=== PATIENT | male | born 1960 | race Caucasian/White ===

== ENCOUNTER 2021-09-09 15:20 | Inpatient (IN) ==
[2021-09-09] MEDS ORDERED: SODIUM CHLORIDE 0.9% 1000ML 1,000 ML IV STA ×2 (15:40→16:32)
[2021-09-09] MEDS ORDERED: HYDROmorphone INJ 0.5 MG/0.5 ML SYR IV PRN (15:40)
[2021-09-09] MEDS ORDERED: SODIUM CHLORIDE 0.9% 250 ML IV PRN (15:40)
[2021-09-09] MEDS ORDERED: FAMOTIDINE 20MG/5ML IV PUSH IV STA (15:43)
[2021-09-09 15:49] LABS: iSTAT Creatinine 1.2 mg/dl (0.6-1.3); iSTAT Hemoglobin 8.8 g/dl (14.0-18.0); iSTAT Ionized Calcium 1.12 mmol/l (1.12-1.32)
--- NOTE | 2021-09-09 15:52 | Emergency Department Note ---
Impression & Plan Acute GI bleeding, Abdominal pain, lower, Tachycardia ED Provider Note INFORMANT: Patient ED PROVIDER(S): Mikal Correa MD CHIEF COMPLAINT: Abdominal pain PLAN: Disposition: Admitted Condition: Good Outpatient prescription management: none Referral: None MEDICAL DECISION MAKING: Patient presented to emergency room because of abdominal pain and GI bleeding. He has had multiple episodes. He was tachycardic. He had lower pain and was Hemoccult positive on examination. The patient was hydrated. His CBC showed a significant leukocytosis. Chemistry panel was unremarkable. The patient's hemoglobin was moderately low as well. He underwent CT imaging and this showed diverticulitis without abscess. The patient had a dose of IV Zosyn given. As needed Dilaudid was ordered. Additional fluids ordered. Stool studies ordered. Further management in the hospital will be necessary. Consultation was made with the [facility] service. Patient was evaluated in the ER admitted for further management. Triage Nursing notes reviewed and agree them. Vital Signs: reviewed and remarkable for tachycardia Differential diagnosis: Diverticulosis, AVM, coagulopathy, colitis, inflammatory bowel disease, malignancy, Wilma-Erickson tear, esophagitis, peptic ulcer disease, variceal bleed, gastritis, epistaxis, fissure, hemorrhoids, as well as other pathologies. Diagnostics interpreted by me: ECG: none Cardiac Monitoring: Cardiac monitoring ordered by me: The patient was placed on continuous cardiac monitoring and observed. It revealed a sinus tachycardic rhythm at 123 beats per minute without ectopy or evidence of dysrhythmia. Imaging studies: CT scan as above HPI: The patient is a 60 year old male who presents to the Emergency Room with complaints of lower. This started yesterday and is worsening. The patient also notes the following associated symptoms, bloody bowel movements yesterday and today totaling 10. Patient says he had some diarrhea and GI upset last week and then it got better. The patient has been given morphine by EMS for relieving factors. Current pain is rated as 4/10. Patient states pain was a 9 out of 10. He does use daily Aleve. Has history of high blood pressure but is not on any medication. No GI history. Pt denies LOC, headache, fevers, chills, diaphoresis, visual changes, neck pain, chest pain, breathing difficulties, nausea, vomiting, back pain, melena, urinary symptoms, numbness, weakness, lymphadenopathy, rash, or other complaints. ROS: See above HPI for pertinent positives & negatives. A total of 10 systems reviewed and were otherwise negative. 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 Oropharynx unremarkable. EYES: Normal conjunctiva. Sclera non-icteric. NECK: Inspection normal. Non-tender. Supple. No nuchal rigidity. FROM. No masses. RESPIRATORY: Clear to auscultation. No wheezes. No rales. Normal respiratory effort. CARDIAC: Normal rate. Normal rhythm. No murmurs. No rubs. Extremities warm and well perfused. Pulses equal. No JVD. GI: Soft, non-distended. No tenderness to palpation. No rebound or guarding. No masses. RECTAL: No external abnormalities. There was reddish stool in the vault and it was Hemoccult positive. MUSCULOSKELETAL: Atraumatic. Chest examination reveals no tenderness. The back is symmetrical on inspection without obvious abnormality. There is no CVA tenderness to palpation. No joint edema. LOWER EXTREMITIES: Calves are equal size bilaterally and non-tender. No edema. No discoloration. NEURO: Normal sensorium. No sensory or motor deficits noted. SKIN: No rash or jaundice noted. Mikal Correa MD Past Med/Surg History Social History Smoking Status: Current every day smoker Tobacco Type: Cigarettes Feels Safe at Home: Yes Results & Data (ED) Vital Signs Vital Signs - 24 hr 09/09/21 15:27 09/09/21 15:30 09/09/21 16:02 Temperature 36.5 C Temperature Source Oral Pulse Rate 126 H Pulse Rhythm Regular Pulse Strength Normal Respiratory Rate 18 Respiratory Effort / Characteristics Non-Labored Spontaneous Respiratory Depth Normal Respiratory Pattern Regular Blood Pressure 153/85 H 115/73 124/71 Blood Pressure Mean 107 87 88 Blood Pressure Position Lying Pulse Oximetry 97 Oxygen Delivery Method Room Air Sepsis Recent Fever Within 48 Hours No Sepsis New/Unexplained Change in Mental Status N/A Sepsis Action Taken by Nursing No Action Required 09/09/21 17:00 09/09/21 17:02 Temperature Temperature Source Pulse Rate 100 H Pulse Rhythm Pulse Strength Respiratory Rate 12 Respiratory Effort / Characteristics Respiratory Depth Respiratory Pattern Blood Pressure 146/70 H Blood Pressure Mean 95 Blood Pressure Position Pulse Oximetry 96 Oxygen Delivery Method Room Air Sepsis Recent Fever Within 48 Hours Sepsis New/Unexplained Change in Mental Status Sepsis Action Taken by Nursing Laboratory Data Result diagrams: 09/09/21 15:26 09/09/21 15:26 Lab Results 09/09/21 09/09/21 09/09/21 Range/Units 15:26 15:26 15:26 WBC 27.91 H (4.8-10.8) K/uL RBC 3.32 L (4.7-6.1) M/uL Hgb 9.3 L (14.0-18.0) g/dL POC Hgb (14.0-18.0) g/dl Hct 28.6 L (42-52) % POC Hct (42-52) % MCV 86.1 (80-100) fL MCH 28.0 (25-34) pg MCHC 32.5 (32-36) g/dL RDW Std Deviation 47.9 H (36.4-46.3) fL RDW Coeff of Reggie 15.2 H (11.5-14.5) % Plt Count 467 H (130-400) K/uL MPV 9.3 (7.4-10.4) fL Immature Gran % (Auto) 2.5 % Neut % (Auto) 82.4 % Lymph % (Auto) 5.8 % Pierce % (Auto) 8.3 % Eos % (Auto) 0.8 % Baso % (Auto) 0.2 % Neut # (Auto) 23.04 H (1.4-6.5) K/uL Lymph # (Auto) 1.61 (1.2-3.4) K/uL Pierce # (Auto) 2.31 H (0.11-0.59) K/uL Eos # (Auto) 0.21 (0-0.5) K/uL Baso # (Auto) 0.05 (0-0.2) K/uL Immature Gran # (Auto) 0.69 H (0.00-0.02) K/uL Hypochromasia Present PT 10.9 (9.0-12.0) Seconds INR 1.1 (0.9-1.1) POC Sodium (135-144) mmol/L Sodium 134 L (136-145) mmol/L POC Potassium (3.3-5.0) mmol/L Potassium 4.0 (3.5-5.1) mmol/L POC Chloride (101-112) mmol/L Chloride 104 (98-107) mmol/L Carbon Dioxide 24 (21-32) mmol/L POC Total CO2 (24-31) mmol/L Anion Gap 6.0 (3-11) POC Anion Gap (16-25) mmol/L POC BUN (7-18) mg/dl BUN 20 H (7-18) mg/dl Creatinine 1.30 (0.6-1.4) mg/dl POC Creatinine (0.6-1.3) mg/dl Est Cr Clr Drug Dosing 70.2 ml/min Est GFR ( Amer) 67.8 ml/min Est GFR (Non-Af Amer) 58.5 ml/min BUN/Creatinine Ratio 15.1 (10-20) Glucose 118 H (70-99) mg/dl POC Glucose (other) (70-99) mg/dl Lactate (0.4-2.0) mmol/L Calcium 8.4 L (8.5-10.1) mg/dl POC Ioniz Calcium Oskar (1.12-1.32) mmol/l Total Bilirubin 0.4 (0.2-1) mg/dl AST 23 (15-37) U/L ALT 47 (12-78) Alkaline Phosphatase 115 (45-117) U/L Total Protein 6.6 (6.4-8.2) gm/dl Albumin 2.4 L (3.4-5.0) gm/dl Globulin 4.2 H (2.5-4.0) gm/dl Albumin/Globulin Ratio 0.6 L (0.9-2) Lipase 95 (73-393) U/L Blood Type Blood Type Recheck Antibody Screen Crossmatch 09/09/21 09/09/21 09/09/21 Range/Units 15:37 15:44 16:18 WBC (4.8-10.8) K/uL RBC (4.7-6.1) M/uL Hgb (14.0-18.0) g/dL POC Hgb 8.8 L (14.0-18.0) g/dl Hct (42-52) % POC Hct 26 L (42-52) % MCV (80-100) fL MCH (25-34) pg MCHC (32-36) g/dL RDW Std Deviation (36.4-46.3) fL RDW Coeff of Reggie (11.5-14.5) % Plt Count (130-400) K/uL MPV (7.4-10.4) fL Immature Gran % (Auto) % Neut % (Auto) % Lymph % (Auto) % Pierce % (Auto) % Eos % (Auto) % Baso % (Auto) % Neut # (Auto) (1.4-6.5) K/uL Lymph # (Auto) (1.2-3.4) K/uL Pierce # (Auto) (0.11-0.59) K/uL Eos # (Auto) (0-0.5) K/uL Baso # (Auto) (0-0.2) K/uL Immature Gran # (Auto) (0.00-0.02) K/uL Hypochromasia PT (9.0-12.0) Seconds INR (0.9-1.1) POC Sodium 135 (135-144) mmol/L Sodium (136-145) mmol/L POC Potassium 4.0 (3.3-5.0) mmol/L Potassium (3.5-5.1) mmol/L POC Chloride 102 (101-112) mmol/L Chloride (98-107) mmol/L Carbon Dioxide (21-32) mmol/L POC Total CO2 23 L (24-31) mmol/L Anion Gap (3-11) POC Anion Gap 15.0 L (16-25) mmol/L POC BUN 19 H (7-18) mg/dl BUN (7-18) mg/dl Creatinine (0.6-1.4) mg/dl POC Creatinine 1.2 (0.6-1.3) mg/dl Est Cr Clr Drug Dosing ml/min Est GFR ( Amer) ml/min Est GFR (Non-Af Amer) ml/min BUN/Creatinine Ratio (10-20) Glucose (70-99) mg/dl POC Glucose (other) 119 H (70-99) mg/dl Lactate (0.4-2.0) mmol/L Calcium (8.5-10.1) mg/dl POC Ioniz Calcium Oskar 1.12 (1.12-1.32) mmol/l Total Bilirubin (0.2-1) mg/dl AST (15-37) U/L ALT (12-78) Alkaline Phosphatase (45-117) U/L Total Protein (6.4-8.2) gm/dl Albumin (3.4-5.0) gm/dl Globulin (2.5-4.0) gm/dl Albumin/Globulin Ratio (0.9-2) Lipase (73-393) U/L Blood Type O Positive Blood Type Recheck O Positive Antibody Screen NEGATIVE Crossmatch See Detail 09/09/21 Range/Units 16:52 WBC (4.8-10.8) K/uL RBC (4.7-6.1) M/uL Hgb (14.0-18.0) g/dL POC Hgb (14.0-18.0) g/dl Hct (42-52) % POC Hct (42-52) % MCV (80-100) fL MCH (25-34) pg MCHC (32-36) g/dL RDW Std Deviation (36.4-46.3) fL RDW Coeff of Reggie (11.5-14.5) % Plt Count (130-400) K/uL MPV (7.4-10.4) fL Immature Gran % (Auto) % Neut % (Auto) % Lymph % (Auto) % Pierce % (Auto) % Eos % (Auto) % Baso % (Auto) % Neut # (Auto) (1.4-6.5) K/uL Lymph # (Auto) (1.2-3.4) K/uL Pierce # (Auto) (0.11-0.59) K/uL Eos # (Auto) (0-0.5) K/uL Baso # (Auto) (0-0.2) K/uL Immature Gran # (Auto) (0.00-0.02) K/uL Hypochromasia PT (9.0-12.0) Seconds INR (0.9-1.1) POC Sodium (135-144) mmol/L Sodium (136-145) mmol/L POC Potassium (3.3-5.0) mmol/L Potassium (3.5-5.1) mmol/L POC Chloride (101-112) mmol/L Chloride (98-107) mmol/L Carbon Dioxide (21-32) mmol/L POC Total CO2 (24-31) mmol/L Anion Gap (3-11) POC Anion Gap (16-25) mmol/L POC BUN (7-18) mg/dl BUN (7-18) mg/dl Creatinine (0.6-1.4) mg/dl POC Creatinine (0.6-1.3) mg/dl Est Cr Clr Drug Dosing ml/min Est GFR ( Amer) ml/min Est GFR (Non-Af Amer) ml/min BUN/Creatinine Ratio (10-20) Glucose (70-99) mg/dl POC Glucose (other) (70-99) mg/dl Lactate 1.9 (0.4-2.0) mmol/L Calcium (8.5-10.1) mg/dl POC Ioniz Calcium Oskar (1.12-1.32) mmol/l Total Bilirubin (0.2-1) mg/dl AST (15-37) U/L ALT (12-78) Alkaline Phosphatase (45-117) U/L Total Protein (6.4-8.2) gm/dl Albumin (3.4-5.0) gm/dl Globulin (2.5-4.0) gm/dl Albumin/Globulin Ratio (0.9-2) Lipase (73-393) U/L Blood Type Blood Type Recheck Antibody Screen Crossmatch Administered Medications Discontinued Medications Famotidine (Famotidine 20mg/5ml Iv Push) 20 mg IV ONE STA Stop: 09/09/21 15:44 Last Admin: 09/09/21 17:21 Dose: 20 mg Documented by: [id number] Sodium Chloride (Nss 1000ml) 1,000 mls @ 999 mls/hr IV .Q1H1M STA Stop: 09/09/21 16:40 Last Admin: 09/09/21 17:20 Dose: 999 mls/hr Documented by: [id number] Imaging Data Radiologist's Impression: Abdomen/Pelvis CT 09/09/21 15:40 CT abd pelvis wo con CLINICAL HISTORY: lower abdominal pain, GI bleed COMPARISON STUDY: No previous studies for comparison. CT DOSE: 939.88 mGycm TECHNIQUE: Standard CT of the Abdomen and Pelvis was performed without IV contrast. The patient did not receive oral contrast. A dose lowering technique was utilized adhering to the principles of ALARA. FINDINGS: Lung base: The lung bases are clear. Abdominal cavity: There is no evidence for abdominal mass, adenopathy or ascites . Liver: The liver is homogeneous in attenuation on these limited noncontrast images.. Spleen: The spleen is homogeneous in attenuation on these limited noncontrast images. Pancreas: The pancreas is homogeneous in attenuation on these limited noncontrast images. Gall Bladder: The gallbladder is well distended with no evidence for cholelithiasis, wall thickening or pericholecystic edema.. Adrenal glands: The adrenal glands are normal in size and attenuation on these limited noncontrast images. Kidneys: The kidneys are homogeneous in attenuation on these limited noncontrast images. There is no evidence for gross renal mass, calculus or hydronephrosis bilaterally. Bowel: There is a small sliding-type hiatal hernia. The bowel loops are normally placed within the abdomen and pelvis without evidence for dilatation or obstruction. There is extensive diverticulosis of descending and sigmoid colon. Perisigmoidal inflammatory changes are present of the sigmoid colon with "tram track sign present. Findings represent the presence of acute diverticulitis. No evidence for perforation, abscess or free air is seen. There is a normal appendix in the right lower quadrant. Bladder: There is no evidence for focal bladder wall thickening, calculus or diverticulum. : There is no evidence for pelvic mass or adenopathy. Vasculature: There is no evidence for focal aneurysmal dilatation of the abdominal aorta. Mild atherosclerotic calcification is present. Osseous structures: There is no acute osseous pathology. Mild degenerative changes are seen within the lumbar spine. IMPRESSION: 1. Acute sigmoid diverticulitis with perisigmoid inflammatory changes and tram tracking present. However, there is no evidence for perforation, abscess or free air. 2. Additional nonacute findings are delineated above. ACT 112: Negative or not required by law. Electronically signed by: Cj Hernandez M.D. 09/09/2021 4:38 PM Discharge Plan Visit Data Chief Complaint: Abdominal Pain Stated Complaint: abd pain ED Provider: Mikal Correa Discharge Problem: Acute GI bleeding, Abdominal pain, lower, Tachycardia Forms Stand Alone Forms: [facility] Referrals Referrals: PCP,NO [Primary Care Provider] -
[2021-09-09 15:54] LABS: Hematocrit (blood only) 28.6 % (42-52); Hemoglobin 9.3 g/dL (14.0-18.0); Mean Corpuscular Hgb Conc 32.5 g/dL (32-36); Mean Corpuscular Volume 86.1 fL (80-100); Mean Platelet Volume 9.3 fL (7.4-10.4); Platelet Count 467 K/uL (130-400); RDW Coefficient of Variation 15.2 % (11.5-14.5); RDW Standard Deviation 47.9 fL (36.4-46.3); Red Blood Count 3.32 M/uL (4.7-6.1); White Blood Count 27.91 K/uL (4.8-10.8)
[2021-09-09 16:03] LABS: INR 1.1 (0.9-1.1); Prothrombin Time 10.9 Seconds (9.0-12.0)
[2021-09-09 16:17] LABS: Basophils # (auto) 0.05 K/uL (0-0.2); Basophils % (auto) 0.2 %; Eosinophils # (auto) 0.21 K/uL (0-0.5); Eosinophils % (auto) 0.8 %; Hypochromasia Present; Immature Granulocytes # (auto) 0.69 K/uL (0.00-0.02); Immature Granulocytes % (auto) 2.5 %; Lymphocytes # (auto) 1.61 K/uL (1.2-3.4); Lymphocytes % (auto) 5.8 %; Monocytes # (auto) 2.31 K/uL (0.11-0.59); Monocytes % (auto) 8.3 %; Neutrophils # (auto) 23.04 K/uL (1.4-6.5); Neutrophils % (auto) 82.4 %
[2021-09-09 16:23] LABS: Albumin Level 2.4 gm/dl (3.4-5.0); BUN Creatinine Ratio 15.1 (10-20); Calcium 8.4 mg/dl (8.5-10.1); Creatinine Clr Calc Pharmacy 70.2 ml/min; Est GFR (African American) 67.8 ml/min; Est GFR (Non-African American) 58.5 ml/min
[2021-09-09 16:28] LABS: Albumin Globulin Ratio 0.6 (0.9-2); Bilirubin,Total 0.4 mg/dl (0.2-1); Globulin 4.2 gm/dl (2.5-4.0); Total Protein 6.6 gm/dl (6.4-8.2)
[2021-09-09] MEDS ORDERED: SODIUM CHLORIDE 0.9% 1000ML 500 ML IV ONE (16:32)
[2021-09-09] MEDS ORDERED: PIPERACILLIN/TAZOBACTAM 4.5 GM in DEXTROSE 5% 100 ML IV ONE (16:32)
[2021-09-09] MEDS ORDERED: PIPERACILL/TAZOBAC CONSULT ACTIVE PRN (16:32)
--- NOTE | 2021-09-09 16:39 | CT Scan Report ---
CT abd pelvis wo con CLINICAL HISTORY: lower abdominal pain, GI bleed COMPARISON STUDY: No previous studies for comparison. CT DOSE: 939.88 mGycm TECHNIQUE: Standard CT of the Abdomen and Pelvis was performed without IV contrast. The patient did not receive oral contrast. A dose lowering technique was utilized adhering to the principles of ALAR A. FINDINGS: Lung base: The lung bases are clear. Abdominal cavity: There is no evidence for abdominal mass, adenopathy or ascites. Liver: The liver is homogeneous in attenuation on these limited noncontrast images.. Spleen: The spleen is homogeneous in attenuation on these limited noncontrast images. Pancreas: The pancreas is homogeneous in attenuation on these limited noncontrast images. Gall Bladder: The gallbladder is well distended with no evidence for cholelithiasis, wall thickening or pericholecystic edema.. Adrenal glands: The adrenal glands are normal in size and attenuation on these limited noncontrast im ages. Kidneys: The kidneys are homogeneous in attenuation on these limited noncontrast images. There is no evidence for gross renal mass, calculus or hydronephrosis bilaterally. Bowel: There is a small sliding-type hiatal hernia. The bowel loops are normally placed within the ab domen and pelvis without evidence for dilatation or obstruction. There is extensive diverticulosis of descending and sigmoid colon. Perisigmoidal inflammatory changes are present of the sigmoid colon with "tram track sign present. Findings represent the presence of a cute diverticulitis. No evidence for perforation, abscess or free air is seen. There is a normal appe ndix in the right lower quadrant. Bladder: There is no evidence for focal bladder wall thickening, calculus or diverticulum. : There is no evidence for pelvic mass or adenopathy. Vasculature: There is no evidence for focal aneurysmal dilatation of the abdominal aorta. Mild athero sclerotic calcification is present. Osseous structures: There is no acute osseous pathology. Mild degenerative changes are seen within th e lumbar spine. IMPRESSION: 1. Acute sigmoid diverticulitis with perisigmoid inflammatory changes and tram tracking present. Rodgers rubia, there is no evidence for perforation, abscess or free air. 2. Additional nonacute findings are delineated above. ACT 112: Negative or not required by law. Electronically signed by: Cj Hernandez M.D. 09/09/2021 4:38 PM
--- NOTE | 2021-09-09 17:07 | History & Physical Report ---
Date of Service September 09, 2021 Assessment & Plan (1) Acute GI bleeding: Plan: - Admit to tele - CT abd/pelvis reviewed showing likely diverticulitis - will hydrate with IVFs, continue IV zosyn, follow blood cultures x 2 - Follow lactate and stool cultures - Will place on famotidine 20 mg IV BID with hx of using aleve at home - takes 2-3 tablets of Aleve BID. - Trend H&H Q6H, last hgb was 9.3, no current needs for transfusion, transfuse if < 7.0 - Consult GI team for possible scope as outpatient or acutely if develops diffuse bleeding again - NPO for now, ok with sips/chips and meds, GI to determine if allowed PO diet tomorrow (2) Diverticulosis: Plan: - hx of such 12 years ago, has never had routine colonoscopy- likely needs one as outpatient in 6 weeks after acute diverticulitis resolved - GI consulted (3) Tachycardia: Plan: - Secondary to GI bleed, improved s/p fluid resuscitation with HR currently around 100 compared to 120-130 previously when he came into the ER - Check EKG - Hgb of 9.3, unknown outpatient baseline (4) Leukocytosis: Plan: - Follow blood cultures, stool culture once provides sample - Cont IV zosyn - As above (5) HTN (hypertension): Plan: - Reports hx of BP 200/100, monitor, likely needs to be placed on BP medication prior to dc. Report issues with insurance previously and not being able to obtain medication. Trialed HCTZ before with improvement. Referred to [facility] if would ever lose insurance again. Also can give prescription discount card on d/c if set up with Rx. (6) Tobacco use: Plan: - Cessation encouraged at bedside - Smokes 1/2 - 1 ppd since age 14. - Nicotine patch ordered DVT ppx: Teds, scds, no chemical ppx in the setting of acute GID CODE: FULL Dispo: From home, likely to remain in the hospital x 1-2 days. History of Present Illness Chief Complaint: Bloody bowel movements Primary Care Provider: NO PCP This is a 60 yo M with PMhx of diverticulitis, current smoker of 1/2-1 ppd, and HTN, who presents with acute onset of blood bowel movements. Pt notes 1 week ago had issues with bloody bowels and fever x 3 days from Aug 29 - Aug 31, and then things improved. Yesterday he again developed bloody BM, bright red with dark red clots. Denies dark tarry stools. He notes a total of 10 bloody BM within the past 24 hours, with last being around 2:30p prior to coming to the ER. He admits to lower central abdominal cramping prior to every bowel movement. He denies nausea or vomiting. His pain being 9/10 prior to coming into the ER is now improved to a 3/10 after getting a dose of IV pain meds. Admits to lightheadedness and dizziness, no falls. Routine medications include tylenol and aleve on a daily basis; takes 2-3 Aleve tablets twice per day for generalized aches and pains. Pt drinks alcohol occasionally, none recently. Last ate dinner last night. Denies any recent GI illnesses or other acute illness other than the aforementioned gi issues and fever over 10 days ago. He has never had a colonoscopy before. About 12 years ago he had another bout of diverticulitis, but refused hospitalization and was sent home on PO antibiotics. At that time he did not have any bloody BMs. He does not take any medications for high blood pressure but reports throughout his life has been 200/100 when he visits a provider, and has only seen improvement in BP with HCTZ. Due to insurance issues he has not been on medications for HTN. Trialed lisinopril up to 20 mg daily without significant improvement. Pt recently got insurance through new employment as a [employer] at [employer]. Noted to have leukocytosis with WBC of 27K, anemic with hgb of 9.3 hct of 28.6, but no other baseline to compare this to within medical records. Here he was started on zosyn IV, given dilaudid for pain, and total of 2500 mL of fluids in the ER. Family Hx: Denies family history of cancer, stroke, DM or HTN Social Hx: smokes 1/2- 1 ppd since age 14, drinks alcohol rarely, engaged to [employer] who is present at bedside Allergies Allergy/AdvReac Type Severity Reaction Status Date / Time No Known Allergies Allergy Unverified 09/09/21 19:07 Home Medications Medication Instructions Recorded Confirmed Type acetaminophen 325 mg capsule 325 mg PO QID PRN 09/09/21 09/09/21 History (Tylenol) naproxen sodium 220 mg capsule 440 mg PO BID PRN 09/09/21 09/09/21 History (Aleve) Past Med/Surg History Social History Smoking Status: Current every day smoker Tobacco Type: Cigarettes Feels Safe at Home: Yes Review of Systems Review of Systems: Constitutional: No fever, sweats or chills, + lightheadedness and dizziness Eyes: No diplopia, no worsening or blurred vision ENT: normal hearing, no trouble swallowing Respiratory: No cough, sputum, dyspnea at rest or on exertion Cardiovascular: No chest pain, tightness or palpitations Abdomen: As per HPI. + central lower abdominal pain, bloody BM, no nausea, no vomiting. Musculoskeletal: No joint pain, calf pain, swelling Neurologic: + generalized weakness today, no numbness/tingling, or balance problems Psychiatric: No anxiety or depression Skin: No rash or itch Physical Exam Physical Exam: General: awake, alert, no apparent distress Head: Normocephalic, atraumatic ENT: PERRL, EOMI, no pharyngeal exudate, mucous membranes moist Chest: Clear to auscultation, on room air, no adventitious breath sounds Cardiac: Regular rate, tachycardic with HR around 100 at bedside, no murmur, no JVD, normal peripheral pulses, good capillary refill Abdominal: NABS x 4 quadrants, soft, nondistended, + mildly tender to palpation in lower abdomen, no rebound or guarding Extremities: Normal inspection, no peripheral edema or erythema, calfs nontender to palpation Psych: Normal mood and affect Neuro: AAO x 3, strength intact bilaterally and rated 5/5, no motor deficits, speech is clear, no peripheral sensory deficits Results & Data Results & Data ([facility]) Vital Signs (Past 12 Hours) Vital Signs Temp Pulse Resp BP Pulse Ox 09/09/21 15:27 36.5 C 126 H 18 153/85 H 97 Laboratory Results 09/09/21 09/09/21 09/09/21 16:52 16:18 15:44 WBC RBC Hgb POC Hgb Hct POC Hct MCV MCH MCHC RDW Std Deviation RDW Coeff of Reggie Plt Count MPV Immature Gran % (Auto) Neut % (Auto) Lymph % (Auto) Mcminn % (Auto) Eos % (Auto) Baso % (Auto) Neut # (Auto) Lymph # (Auto) Mcminn # (Auto) Eos # (Auto) Baso # (Auto) Immature Gran # (Auto) Hypochromasia PT INR POC Sodium Sodium POC Potassium Potassium POC Chloride Chloride Carbon Dioxide POC Total CO2 Anion Gap POC Anion Gap POC BUN BUN Creatinine POC Creatinine Est Cr Clr Drug Dosing Est GFR ( Amer) Est GFR (Non-Af Amer) BUN/Creatinine Ratio Glucose POC Glucose (other) Lactate 1.9 Calcium POC Ioniz Calcium Oskar Total Bilirubin AST ALT Alkaline Phosphatase Total Protein Albumin Globulin Albumin/Globulin Ratio Lipase Blood Type O Positive Blood Type Recheck O Positive Antibody Screen NEGATIVE Crossmatch See Detail 09/09/21 09/09/21 09/09/21 15:37 15:26 15:26 WBC RBC Hgb POC Hgb 8.8 L Hct POC Hct 26 L MCV MCH MCHC RDW Std Deviation RDW Coeff of Reggie Plt Count MPV Immature Gran % (Auto) Neut % (Auto) Lymph % (Auto) Mcminn % (Auto) Eos % (Auto) Baso % (Auto) Neut # (Auto) Lymph # (Auto) Mcminn # (Auto) Eos # (Auto) Baso # (Auto) Immature Gran # (Auto) Hypochromasia PT 10.9 INR 1.1 POC Sodium 135 Sodium 134 L POC Potassium 4.0 Potassium 4.0 POC Chloride 102 Chloride 104 Carbon Dioxide 24 POC Total CO2 23 L Anion Gap 6.0 POC Anion Gap 15.0 L POC BUN 19 H BUN 20 H Creatinine 1.30 POC Creatinine 1.2 Est Cr Clr Drug Dosing 70.2 Est GFR ( Amer) 67.8 Est GFR (Non-Af Amer) 58.5 BUN/Creatinine Ratio 15.1 Glucose 118 H POC Glucose (other) 119 H Lactate Calcium 8.4 L POC Ioniz Calcium Oskar 1.12 Total Bilirubin 0.4 AST 23 ALT 47 Alkaline Phosphatase 115 Total Protein 6.6 Albumin 2.4 L Globulin 4.2 H Albumin/Globulin Ratio 0.6 L Lipase 95 Blood Type Blood Type Recheck Antibody Screen Crossmatch 09/09/21 15:26 WBC 27.91 H RBC 3.32 L Hgb 9.3 L POC Hgb Hct 28.6 L POC Hct MCV 86.1 MCH 28.0 MCHC 32.5 RDW Std Deviation 47.9 H RDW Coeff of Reggie 15.2 H Plt Count 467 H MPV 9.3 Immature Gran % (Auto) 2.5 Neut % (Auto) 82.4 Lymph % (Auto) 5.8 Mcminn % (Auto) 8.3 Eos % (Auto) 0.8 Baso % (Auto) 0.2 Neut # (Auto) 23.04 H Lymph # (Auto) 1.61 Mcminn # (Auto) 2.31 H Eos # (Auto) 0.21 Baso # (Auto) 0.05 Immature Gran # (Auto) 0.69 H Hypochromasia Present PT INR POC Sodium Sodium POC Potassium Potassium POC Chloride Chloride Carbon Dioxide POC Total CO2 Anion Gap POC Anion Gap POC BUN BUN Creatinine POC Creatinine Est Cr Clr Drug Dosing Est GFR ( Amer) Est GFR (Non-Af Amer) BUN/Creatinine Ratio Glucose POC Glucose (other) Lactate Calcium POC Ioniz Calcium Oskar Total Bilirubin AST ALT Alkaline Phosphatase Total Protein Albumin Globulin Albumin/Globulin Ratio Lipase Blood Type Blood Type Recheck Antibody Screen Crossmatch Diagnostic Findings Abdomen/Pelvis CT 09/09/21 15:40 CT abd pelvis wo con CLINICAL HISTORY: lower abdominal pain, GI bleed COMPARISON STUDY: No previous studies for comparison. CT DOSE: 939.88 mGycm TECHNIQUE: Standard CT of the Abdomen and Pelvis was performed without IV contrast. The patient did not receive oral contrast. A dose lowering technique was utilized adhering to the principles of ALARA. FINDINGS: Lung base: The lung bases are clear. Abdominal cavity: There is no evidence for abdominal mass, adenopathy or ascites. Liver: The liver is homogeneous in attenuation on these limited noncontrast images.. Spleen: The spleen is homogeneous in attenuation on these limited noncontrast images. Pancreas: The pancreas is homogeneous in attenuation on these limited noncontrast images. Gall Bladder: The gallbladder is well distended with no evidence for cholelithiasis, wall thickening or pericholecystic edema.. Adrenal glands: The adrenal glands are normal in size and attenuation on these limited noncontrast images. Kidneys: The kidneys are homogeneous in attenuation on these limited noncontrast images. There is no evidence for gross renal mass, calculus or hydronephrosis bilaterally. Bowel: There is a small sliding-type hiatal hernia. The bowel loops are normally placed within the abdomen and pelvis without evidence for dilatation or obstruction. There is extensive diverticulosis of descending and sigmoid colon. Perisigmoidal inflammatory changes are present of the sigmoid colon with "tram track sign present. Findings represent the presence of acute diverticulitis. No evidence for perforation, abscess or free air is seen. There is a normal appendix in the right lower quadrant. Bladder: There is no evidence for focal bladder wall thickening, calculus or diverticulum. : There is no evidence for pelvic mass or adenopathy. Vasculature: There is no evidence for focal aneurysmal dilatation of the abdominal aorta. Mild atherosclerotic calcification is present. Osseous structures: There is no acute osseous pathology. Mild degenerative changes are seen within the lumbar spine. IMPRESSION: 1. Acute sigmoid diverticulitis with perisigmoid inflammatory changes and tram tracking present. However, there is no evidence for perforation, abscess or free air. 2. Additional nonacute findings are delineated above. ACT 112: Negative or not required by law. Electronically signed by: Cj Hernandez M.D. 09/09/2021 4:38 PM ECG Additional Comments: Obtain EKG for tachycardia Code Status & VTE Plan Code Status Full code- discussed with the patient at bedside Supervising Physician Co-Signing Physician Notes 60-year-old gentleman with PMH of diverticulitis x1 [12 to 15 years ago, no fol low-up colonoscopy or GI follow-up], and HTN, currently on no home meds but used HCTZ on and off presented 09/09/2021 with complaint of bloody bowel movements and fever for 1 day [employer]. He had similar episodes for 3 days in the last 15 days. Patient denied any black tarry stools. Patient also complains of lower belly pain associated with frequent bowel movements. Patient reports smoking half to 1 packs a day since age 14, 3 drinks of alcohol in a week [last drink 2.5 weeks ago], no use of recreational drugs or marijuana. No family or personal history of blood clot. Family history of ovarian cancer in mother. CT abdomen pelvis in the ED showed acute sigmoid diverticulitis, WBC was elevated. Patient was started on Zosyn, continue with Zosyn. N.p.o., IV fluid, GI consult. Defer resuming diet to GI team. GI bleed likely associated with diverticulitis, less likely will need transfusion, no baseline hemoglobin, but for now monitor every 6 hour until stability determined. c/w IVF. Upon Examination: GENERAL: Alert and oriented x3. NAD, on RA. HEENT: No pallor, no icterus. Pupils equal, round and reactive to light. Oral mucosa moist. NECK: No JVD, no neck masses. HEART: S1 and S2 heard. Regular rate and rhythm. No murmur, no gallop. RESPIRATORY SYSTEM: Normal AP diameter. No accessory muscle use. No wheezing, no crackles. ABDOMEN: Soft, bowel sounds present, lower belly tenderness, no distention. CENTRAL NERVOUS SYSTEM: No facial droop. Speech is clear. Obeys simple commands. Moves extremities. EXTREMITIES: No edema, no erythema seen. I have seen and examined the patient and have discussed the case with the provider above. I agree with the assessment and plan as stated.
[2021-09-09] MEDS: SODIUM CHLORIDE 0.9% 1000ML 1,000 ML IV STA ×2 (18:05→21:55)
[2021-09-09] MEDS: NICOTINE 14 MG/24 HR PATCH TD SCH (21:56)
[2021-09-09 23:06] LABS: Adenovirus F 40/41 PCR Not Detected (NotDetected); Astrovirus PCR Not Detected (NotDetected); Clostridium diff Toxin A/B PCR Not Detected (NotDetected); Cryptosporidium PCR Not Detected (NotDetected); Cyclospora cayetanensis PCR Not Detected (NotDetected); Entamoeba histolytica PCR Not Detected (NotDetected); Enteroaggregative E.coli(EAEC) Not Detected (NotDetected); Enteropathogenic E.coli (EPEC) Not Detected (NotDetected); Enterotoxigenic E.coli (ETEC) Not Detected (NotDetected); Giardia lamblia PCR Not Detected (NotDetected); Norovirus GI/GII PCR Not Detected (NotDetected); Plesiomonas shigelloides PCR Not Detected (NotDetected); Rotavirus A PCR Not Detected (NotDetected); Salmonella PCR Not Detected (NotDetected); Sapovirus PCR Not Detected (NotDetected); Shiga-like Toxin E.coli (STEC) Not Detected (NotDetected); Shigella/Enteroinvasive E.coli Not Detected (NotDetected); Vibrio cholerae PCR Not Detected (NotDetected); Vibrio species PCR Not Detected (NotDetected); Yersinia enterocolitica PCR Not Detected (NotDetected)
[2021-09-09 23:37] LABS: Campylobacter PCR DETECTED (NotDetected)
[2021-09-09] MEDS ORDERED: FAMOTIDINE 20MG/5ML IV PUSH IV SCH (23:47)
[2021-09-09] MEDS ORDERED: MoRPHine SULFATE 4 MG/ML 1 ML CARP\\VIAL IV PRN (23:47)
[2021-09-09] MEDS ORDERED: ACETAMINOPHEN 325 MG TAB PO PRN (23:47)
[2021-09-09] MEDS ORDERED: ONDANSETRON INJ 2 MG/ML 2 ML VIAL IV PRN (23:47)
[2021-09-10] MEDS: FAMOTIDINE 20 MG in SYRINGE 3 ML IV SCH ×3 (00:31→21:19)
[2021-09-10] MEDS: SODIUM CHLORIDE 0.9% 1000ML 1,000 ML IV SCH ×3 (00:31→17:17)
[2021-09-10 00:38] LABS: Hemoglobin 7.9 g/dL (14.0-18.0)
[2021-09-10] MEDS: PIPERACILLIN/TAZOBACTAM 3.375 GM in DEXTROSE 5% 100 ML IV SCH ×3 (00:49→17:15)
[2021-09-10 05:26] LABS: Appearance Urine Clear (Clear); Bilirubin Urine Negative (Negative); Blood Urine Negative (Negative); Color Urine Yellow; Glucose Urine UA Negative (Negative); Ketones Urine Negative (Negative); Leukocyte Esterase Urine Negative (Negative); Nitrite Urine Negative (Negative); Protein Urine Negative (Negative); Specific Gravity Urine 1.021 (1.000-1.030); Urobilinogen Urine Negative (Negative)
[2021-09-10] MEDS: AZITHROMYCIN 500 MG in DEXTROSE 5% 250 ML IV SCH (05:58)
[2021-09-10 06:40] LABS: Hematocrit (blood only) 22.3 % (42-52); Hemoglobin 7.2 g/dL (14.0-18.0); Mean Corpuscular Hemoglobin 28.1 pg (25-34); Mean Corpuscular Hgb Conc 32.3 g/dL (32-36); Mean Corpuscular Volume 87.1 fL (80-100); Mean Platelet Volume 9.1 fL (7.4-10.4); Platelet Count 389 K/uL (130-400); RDW Coefficient of Variation 15.2 % (11.5-14.5); RDW Standard Deviation 48.9 fL (36.4-46.3); Red Blood Count 2.56 M/uL (4.7-6.1); White Blood Count 17.03 K/uL (4.8-10.8)
[2021-09-10 07:14] LABS: BUN Creatinine Ratio 14.6 (10-20); Calcium 8.2 mg/dl (8.5-10.1); Creatinine Clr Calc Pharmacy 67.1 ml/min; Est GFR (African American) 64.2 ml/min; Est GFR (Non-African American) 55.4 ml/min; Potassium 4.4 mmol/L (3.5-5.1)
[2021-09-10 07:17] LABS: Albumin Globulin Ratio 0.5 (0.9-2); Bilirubin,Total 0.5 mg/dl (0.2-1); Globulin 4.1 gm/dl (2.5-4.0); Total Protein 6.1 gm/dl (6.4-8.2)
[2021-09-10 07:30] LABS: Estimated Average Glucose 131 mg/dl; Hemoglobin A1C 6.2 % (4.5-5.6)
[2021-09-10] MEDS ORDERED: SODIUM CHLORIDE 0.9% 250 ML IV PRN ×2 (07:40→14:03)
[2021-09-10] MEDS ORDERED: FLUARIX QUADRIVALENT 0.5 ML SYR IM ONE (09:00)
--- NOTE | 2021-09-10 09:02 | Electrocardiogram Report ---
Test Reason : Blood Pressure : / mmHG Vent. Rate : 107 BPM Atrial Rate : 107 BPM P-R Int : 152 ms QRS Dur : 084 ms QT Int : 326 ms P-R-T Axes : 054 047 131 degrees QTc Int : 435 ms Sinus tachycardia Diffuse Nonspecific ST and T wave abnormality Abnormal ECG No previous ECGs available Confirmed by Yang Drew ([id number]) on 09/10/2021 9:01:36 AM Referred By: REFERRED SELF Confirmed By:Yang Drew
[2021-09-10] MEDS: NICOTINE 14 MG/24 HR PATCH TD SCH (09:11)
--- NOTE | 2021-09-10 10:44 | Gastrointestinal Consultation ---
Date of Consultation September 10, 2021 Assessment & Plan (1) Diverticulitis: -Continue Zosyn -NPO, plan for liquids when advancing diet -Needs colonoscopy in 6-8 weeks (2) Acute GI bleeding: -Not a candidate for colonoscopy due to increased risk of perforation in the setting of acute diverticulitis -Continue transfusion and continue to monitor H/H -If bleeding worsens, could consider transfer for IR intervention Supervising Physician Co-Signing Physician Notes Agree with AYAAN Ch as above Abd: Soft, NT, ND, +BS Continue current therapy and supportive care No plans for endoscopic workup at this time due to increased risk of perforation History of Present Illness Reason for Consultation: Diverticulitis, GI bleeding Attending Physician: Oswaldo Tucker MD History of Present Illness Patient is a 60 yo male with PMH of HTN & diverticulitis who is hospitalized due to diverticulitis and rectal bleeding. Patient notes that his symptoms of abdominal pain began on 08/31/21. He notes that he had fever and chills at some point, but eventually he noticed that he was unable to eat a regular diet. On 09/08/21, he developed bright red blood per rectum. He presented to the ED and was noted to be anemic and a CT scan indicated acute diverticulitis of the sigmoid colon. He notes 1 other episode of diverticulitis 15-20 years ago. He notes he was encouraged to seek hospitalization at that point, but he deferred and completed antibiotics as an outpatient. He has never had a colonoscopy. He denies a family history of GI abnormalities. He has no appetite at present. He is receiving a blood transfusion at present. Most recent H/H was 7.2/22.3. He notes resolution of rectal bleeding over the past several hours, but notes he feels like he may have to move his bowels soon. He denies a history of constipation or diarrhea. No other complaints at present. Patient has never had a colonoscopy before. Allergies Allergy/AdvReac Type Severity Reaction Status Date / Time No Known Allergies Allergy Unverified 09/09/21 19:07 Home Medications Medication Instructions Recorded Confirmed Type acetaminophen 325 mg capsule 325 mg PO QID PRN 09/09/21 09/09/21 History (Tylenol) naproxen sodium 220 mg capsule 440 mg PO BID PRN 09/09/21 09/09/21 History (Aleve) Patient History Social History Smoking Status: Current every day smoker Tobacco Type: Cigarettes Second Hand Exposure: No; Do You Dip or Chew Tobacco: No; Tobacco Cessation Education Requested by Patient: No Hx Alcohol Use: Yes Alcohol type: hard liquor Hx Substance Use: No Preferred Language: Armenian Communication Ability: Effective Chair Car Driver Required: No Beliefs That Will Affect Care: None Current Living Situation: Significant Other How many Children do You have: 3 Other Information That Helps Us Care for You: No Feels Safe at Home: Yes Safety Concerns: Feels Safe At This Time Assistive Devices: None Review of Systems Constitutional: no fever and no chills (previously did have these around 09/01/21) Respiratory: no cough and no dyspnea Cardiovascular: no chest pain Gastrointestinal: + abdominal pain (suprapubic, 6/10, stabbing pain) Integumentary: no problem reported Psychiatric: no problem reported Hematologic / Lymphatic: no unexplained weight loss Physical Exam Constitutional: WD/WN, vitals as above Neck: normal visual inspection Respiratory: normal respiratory effort, lungs clear to auscultation Cardiovascular: Rate/Rhythm: regular rate Extremities: no edema Gastrointestinal (Abdomen): Inspection/Auscultation: abdomen normal to inspection; abdomen not distended Percussion/Palpation: + abdomen tender and abdomen soft Musculoskeletal: Head/Neck/Chest: normocephalic Psychiatric: Orientation: alert and oriented x 3 Results & Data ([facility]) Vital Signs (Past 12 Hours) Vital Signs Temp Pulse Pulse Resp BP BP Pulse Ox 09/10/21 10:06 128 H 09/10/21 09:18 36.7 C 114 H 18 125/72 100 09/10/21 09:03 36.7 C 120 H 18 142/83 H 100 09/10/21 08:40 36.7 C 125 H 20 155/71 H 100 09/10/21 07:54 36.8 C 81 18 121/62 09/10/21 03:35 36.5 C 111 H 15 125/63 99 09/09/21 23:58 36.9 C 117 H 20 137/71 100 PG Care Time/CCT Total # of Minutes Spent Total Time Spent with Patient: Total time spent is greater than 50% in coordination of care (as documented) at patient's floor/unit and/or counseling patient: Coding Level of Care Code 30171 Inpt Consult Level 4 Diagnoses Diverticulitis K57.92 Acute GI bleeding K92.2
[2021-09-10 11:56] LABS: Hematocrit (blood only) 23.8 % (42-52); Hemoglobin 7.7 g/dL (14.0-18.0)
--- NOTE | 2021-09-10 15:45 | Hospitalist Progress Note ---
Date of Service September 10, 2021 Assessment & Plan (1) Diverticulitis: (2) Acute GI bleeding: Plan: Risk factors: Has previous history of acute diverticulitis Also takes 2 to 3 tablets of Aleve twice daily - CT abd/pelvis reviewed showing likely diverticulitis - will hydrate with IVFs, continue IV zosyn, follow blood cultures x 2 Hemoglobin decreased from 9.3 now 7.2 1 unit of packed RBCs ordered Hemoglobin improved to 7.7 Additional 1 unit of packed RBCs ordered Repeat hemoglobin at 6 PM Continue IV Zosyn Also azithromycin p.o. day #1 for Campylobacter seen on stool cultures Discussed with Dr. Alan, no colonoscopy for now due to acute diverticulitis, c ontinue IV antibiotics as above, monitor hemoglobin (3) Tachycardia: Plan: Sinus tachycardia, secondary to anemia Blood transfusion as above (4) HTN (hypertension): Plan: Per EDDIE Jyoti Madera's notes: - Reports hx of BP 200/100, monitor, likely needs to be placed on BP medication prior to dc. Report issues with insurance previously and not being able to obtain medication. Trialed HCTZ before with improvement. Referred to [facility] if would ever lose insurance again. Also can give prescription discount card on d/c if set up with Rx. Blood pressure at goal today Monitor closely (5) Tobacco use: Plan: - Cessation encouraged at bedside - Smokes 1/2 - 1 ppd since age 14. - Nicotine patch ordered DVT ppx: Teds, scds, no chemical ppx in the setting of acute GID CODE: FULL Dispo: Anticipate discharge to home when medically stable Needs to establish with primary care physician upon discharge plan of care discussed with patient in detail and at length all questions answered He is understanding, agreeable, comfortable with the plan of care Admission and Anticipated Discharge Date Admission Date: September 09, 2021 Subjective Follow-up for acute diverticulitis, with hematochezia, anemia, etc. Seen resting in bed, sitting up, not in distress, pleasant Had hematochezia overnight, none since Denies dizziness, shortness of breath, chest pain, palpitations Does feel fatigue Has right lower quadrant pain, no nausea or vomiting No fevers or chills No other symptoms Review of Systems Review of Systems: all noted and negative except for above Physical Exam Physical Exam: General- oriented x 3, not in distress, speaks in sentences with no effort or accessory muscle use Head- atraumatic Eyes- PERRL, EOMI, anicteric ENT- oropharynx clear Neck- supple, no JVD, no adenopathy, no thyromegaly; carotids +2/2, no bruits appreciated Lungs- clear to auscultation bilaterally, no rales/wheezes Heart- normal rate, regular rhythm; no murmur, no gallop, no rub appreciated Abdomen- normal bowel sounds, nondistended, soft, mild tenderness of the right lower quadrant,, no masses or hepatosplenomegaly Extremities- no pretibial edema, no calf tenderness; peripheral pulses intact Neuro- alert, oriented x 3; CN 2-12 grossly intact; motor 5/5 bilaterally;sensation 100% on all extremities; no other gross focal neurologic deficits Skin- warm & dry Results & Data Results & Data ([facility]) Vital Signs (Past 12 Hours) Vital Signs Temp Pulse Pulse Resp BP BP Pulse Ox 09/10/21 15:05 36.7 C 112 H 20 124/64 99 09/10/21 12:32 36.5 C 75 18 135/63 97 09/10/21 10:06 128 H 09/10/21 09:48 36.8 C 116 H 20 129/64 99 09/10/21 09:18 36.7 C 114 H 18 125/72 100 09/10/21 09:03 36.7 C 120 H 18 142/83 H 100 09/10/21 08:40 36.7 C 125 H 20 155/71 H 100 09/10/21 07:54 36.8 C 81 18 121/62 all noted and reviewed including below
[2021-09-10 22:52] LABS: Hematocrit (blood only) 24.6 % (42-52)
[2021-09-11] MEDS: PIPERACILLIN/TAZOBACTAM 3.375 GM in DEXTROSE 5% 100 ML IV SCH ×2 (01:19→08:21)
[2021-09-11] MEDS: AZITHROMYCIN 500 MG in DEXTROSE 5% 250 ML IV SCH (05:49)
[2021-09-11 07:52] LABS: Hemoglobin 7.8 g/dL (14.0-18.0); Mean Corpuscular Hgb Conc 32.5 g/dL (32-36); Mean Platelet Volume 8.7 fL (7.4-10.4); Platelet Count 352 K/uL (130-400); RDW Coefficient of Variation 15.2 % (11.5-14.5); Red Blood Count 2.79 M/uL (4.7-6.1); White Blood Count 13.17 K/uL (4.8-10.8)
[2021-09-11 08:17] LABS: Albumin Globulin Ratio 0.9 (0.9-2); Albumin Level 2.8 gm/dl (3.4-5.0); BUN Creatinine Ratio 9.6 (10-20); Bilirubin,Total 0.5 mg/dl (0.2-1.0); Creatinine Clr Calc Pharmacy 67.1 ml/min; Est GFR (African American) 64.2 ml/min; Est GFR (Non-African American) 55.4 ml/min; Globulin 3.2 gm/dl (2.5-4.0)
[2021-09-11] MEDS: NICOTINE 14 MG/24 HR PATCH TD SCH (08:21)
[2021-09-11] MEDS: FAMOTIDINE 20 MG in SYRINGE 3 ML IV SCH (08:21)
--- NOTE | 2021-09-11 10:00 | Gastroenterology Progress Note ---
Date of Service September 11, 2021 Assessment & Plan (1) Diverticulitis: Plan: -Continue IV antibiotics while hospitalized. Upon discharge, should transition to oral antibiotics to complete 10 day course of treatment. -Can advance from liquids as tolerated to low residue diet. -Will need colonoscopy in 6-8 weeks as an outpatient (2) Acute GI bleeding: Plan: Not currently having overt GI bleeding. H/H is 7.8/24.0. -If bleeding returns/worsens, consider tagged RBC scan and possible IR intervention Admission and Anticipated Discharge Date Admission Date: September 09, 2021 Supervising Physician Co-Signing Physician Notes Agree with AYAAN Ch as above Continue current therapy and supportive care Will need outpatient colonoscopy in 6 weeks. Subjective Patient is a 60 yo male with diverticulitis and rectal bleeding. He denies rectal bleeding since a small amount of bright red blood was noted in his stool on 09/10/21. H/H is 7.8/24.0. He denies abdominal pain. He is currently on IV a ntibiotic therapy with Zosyn. He is tolerating a liquid diet. He offers no further complaints at this time. He is requesting to be discharged. Review of Systems Constitutional: no fever and no chills Respiratory: no cough and no dyspnea Cardiovascular: no chest pain Gastrointestinal: no abdominal pain and no blood in stools Physical Exam Constitutional: well developed Respiratory: normal respiratory effort Cardiovascular: Extremities: no edema Gastrointestinal (Abdomen): Inspection/Auscultation: abdomen normal to inspection and normal bowel sounds Percussion/Palpation: + abdomen tender (minimal suprapubic tenderness) and abdomen soft Results & Data Results & Data ([facility]) Vital Signs (Past 12 Hours) Vital Signs Temp Pulse Pulse Resp BP Pulse Ox 09/11/21 07:50 36.5 C 109 H 20 142/63 H 96 09/11/21 07:29 101 H 09/11/21 03:32 110 H 09/11/21 03:15 37.0 C 117 H 20 121/68 97 09/10/21 23:15 36.8 C 88 18 133/77 93 PG Care Time/CCT Total # of Minutes Spent Total Time Spent with Patient: Total time spent is greater than 50% in coordination of care (as documented) at patient's floor/unit and/or counseling patient: Coding Level of Care Code 91821 Subseq Hosp Care Lvl 3 Diagnoses Diverticulitis K57.92 Acute GI bleeding K92.2
--- NOTE | 2021-09-11 11:50 | Discharge Summary ---
Date of Service September 11, 2021 Admission HPI Per Admitting Provider This is a 60 yo M with PMhx of diverticulitis, current smoker of 1/2-1 ppd, and HTN, who presents with acute onset of blood bowel movements. Pt notes 1 week ago had issues with bloody bowels and fever x 3 days from Aug 29 - Aug 31, and then things improved. Yesterday he again developed bloody BM, bright red with dark red clots. Denies dark tarry stools. He notes a total of 10 bloody BM within the past 24 hours, with last being around 2:30p prior to coming to the ER. He admits to lower central abdominal cramping prior to every bowel movement. He denies nausea or vomiting. His pain being 9/10 prior to coming into the ER is now improved to a 3/10 after getting a dose of IV pain meds. Admits to lightheadedness and dizziness, no falls. Routine medications include tylenol and aleve on a daily basis; takes 2-3 Aleve tablets twice per day for generalized aches and pains. Pt drinks alcohol occasionally, none recently. Last ate dinner last night. Denies any recent GI illnesses or other acute illness other than the aforementioned gi issues and fever over 10 days ago. He has never had a colonoscopy before. About 12 years ago he had another bout of diverticulitis, but refused hospitalization and was sent home on PO antibiotics. At that time he did not have any bloody BMs. He does not take any medications for high blood pressure but reports throughout his life has been 200/100 when he visits a provider, and has only seen improvement in BP with HCTZ. Due to insurance issues he has not been on medications for HTN. Trialed lisinopril up to 20 mg daily without significant improvement. 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 Noted to have leukocytosis with WBC of 27K, anemic with hgb of 9.3 hct of 28.6, but no other baseline to compare this to within medical records. Here he was started on zosyn IV, given dilaudid for pain, and total of 2500 mL of fluids in the ER. Family Hx: Denies family history of cancer, stroke, DM or HTN Social Hx: smokes 1/2- 1 ppd since age 14, drinks alcohol rarely, engaged to [employer] who is present at bedside Principal Diagnosis Acute sigmoid diverticulitis Campylobacter infection Anemia 2/2 acute GI bleeding Discharge Exam Physical Exam: General: awake, alert, no apparent distress Head: Normocephalic, atraumatic ENT: PERRL, EOMI, no pharyngeal exudate, mucous membranes moist Chest: Clear to auscultation, on room air, no adventitious breath sounds Cardiac: Regular rate, tachycardic with HR around 100 at bedside, no murmur, no JVD, normal peripheral pulses, good capillary refill Abdominal: NABS x 4 quadrants, soft, nondistended, + mildly tender to palpation in lower abdomen, no rebound or guarding Extremities: Normal inspection, no peripheral edema or erythema, calfs nontender to palpation Psych: Normal mood and affect Neuro: AAO x 3, strength intact bilaterally and rated 5/5, no motor deficits, speech is clear, no peripheral sensory deficits Discharge Data Allergies Allergy/AdvReac Type Severity Reaction Status Date / Time No Known Allergies Allergy Unverified 09/09/21 19:07 Consultations 09/09/21 17:02 ED Decision to Admit Stat 09/09/21 17:09 Consult Gastroenterology Routine Ordered Studies Laboratory Results WBC 13.17 K/uL (4.8-10.8) H 09/11/21 07: RBC 2.79 M/uL (4.7-6.1) L 09/11/21 07:22 Hgb 7.8 g/dL (14.0-18.0) L 09/11/21 07:22 POC Hgb 8.8 g/dl (14.0-18.0) L 09/09/21 15:37 Hct 24.0 % (42-52) L 09/11/21 07:22 POC Hct 26 % (42-52) L 09/09/21 15:37 MCV 86.0 fL (80-100) 09/11/21: MCH 28.0 pg (25-34) 09/11/21 07: MCHC 32.5 g/dL (32-36) 09/11/21: RDW Std Deviation 48.0 fL (36.4-46.3) H 09/11/21: RDW Coeff of Reggie 15.2 % (11.5-14.5) H 09/11/21 07:22 Plt Count 352 K/uL (130-400) 09/11/21 07: MPV 8.7 fL (7.4-10.4) 09/11/21 07: Immature Gran % (Auto) 2.5 % 09/09/21 15: Neut % (Auto) 82.4 % 09/09/21 15: Lymph % (Auto) 5.8 % 09/09/21 15: Wayne % (Auto) 8.3 % 09/09/21 15: Eos % (Auto) 0.8 % 09/09/21 15:26 Baso % (Auto) 0.2 % 09/09/21 15: Neut # (Auto) 23.04 K/uL (1.4-6.5) H 09/09/21 15: Lymph # (Auto) 1.61 K/uL (1.2-3.4) 09/09/21 15: Wayne # (Auto) 2.31 K/uL (0.11-0.59) H 09/09/21 15: Eos # (Auto) 0.21 K/uL (0-0.5) 09/09/21 15: Baso # (Auto) 0.05 K/uL (0-0.2) 09/09/21 15: Immature Gran # (Auto) 0.69 K/uL (0.00-0.02) H 09/09/21 15:26 Hypochromasia Present 09/09/21 15: PT 10.9 Seconds (9.0-12.0) 09/09/21 15: INR 1.1 (0.9-1.1) 09/09/21 15:26 POC Sodium 135 mmol/L (135-144) 09/09/21 15:37 Sodium 135 mmol/L (136-145) L 09/11/21: POC Potassium 4.0 mmol/L (3.3-5.0) 09/09/21 15:37 Potassium 4.0 mmol/L (3.5-5.1) 09/11/21 07:22 POC Chloride 102 mmol/L (101-112) 09/09/21 15:37 Chloride 106 mmol/L (98-107) 09/11/21:22 Carbon Dioxide 24 mmol/L (21-32) 09/11/21 07:22 POC Total CO2 23 mmol/L (24-31) L 09/09/21 15:37 Anion Gap 5 (3-11) 09/11/21 07:22 POC Anion Gap 15.0 mmol/L (16-25) L 09/09/21 15:37 POC BUN 19 mg/dl (7-18) H 09/09/21 15:37 BUN 13 mg/dl (6-23) 09/11/21 07:22 Creatinine 1.36 mg/dl (0.6-1.4) 09/11/21 07:22 POC Creatinine 1.2 mg/dl (0.6-1.3) 09/09/21 15:37 Est Cr Clr Drug Dosing 67.1 ml/min 09/11/21 07:22 Est GFR ( Amer) 64.2 ml/min 09/11/21 07:22 Est GFR (Non-Af Amer) 55.4 ml/min 09/11/21 07:22 BUN/Creatinine Ratio 9.6 (10-20) L 09/11/21 07:22 Glucose 98 mg/dl (70-99) 09/11/21 07:22 POC Glucose (other) 119 mg/dl (70-99) H 09/09/21 15:37 Estimat Average Glucose 131 mg/dl 09/10/21 05:39 Hemoglobin A1c 6.2 % (4.5-5.6) H 09/10/21 05:39 Lactate 1.9 mmol/L (0.4-2.0) 09/09/21 16:52 Calcium 8.0 mg/dl (8.5-10.1) L 09/11/21 07:22 POC Ioniz Calcium Oskar 1.12 mmol/l (1.12-1.32) 09/09/21 15:37 Total Bilirubin 0.5 mg/dl (0.2-1.0) 09/11/21 07:22 AST 15 U/L (13-39) 09/11/21 07:22 ALT 20 U/L (7-52) 09/11/21 07:22 Alkaline Phosphatase 80 U/L (34-104) 09/11/21 07:22 Total Protein 6.0 gm/dl (6.0-8.3) 09/11/21 07:22 Albumin 2.8 gm/dl (3.4-5.0) L 09/11/21 07:22 Globulin 3.2 gm/dl (2.5-4.0) 09/11/21 07:22 Albumin/Globulin Ratio 0.9 (0.9-2) 09/11/21 07:22 Triglycerides 143 mg/dl (0-150) 09/10/21 05:39 Cholesterol 119 mg/dl (0-200) 09/10/21 05:39 LDL Cholesterol, Calc 72 mg/dl 09/10/21 05:39 VLDL Cholesterol, Calc 29 mg/dl 09/10/21 05:39 HDL Cholesterol 18 mg/dl 09/10/21 05:39 Cholesterol/HDL Ratio 7 09/10/21 05:39 Lipase 95 U/L (73-393) 09/09/21 15:26 Urine Color Yellow 09/10/21 05:16 Urine Appearance Clear (Clear) 09/10/21 05:16 Urine pH 5.0 (4.5-7.5) 09/10/21 05:16 Ur Specific Ace 1.021 (1.000-1.030) 09/10/21 05:16 Urine Protein Negative (Negative) 09/10/21 05:16 Urine Glucose (UA) Negative (Negative) 09/10/21 05:16 Urine Ketones Negative (Negative) 09/10/21 05:16 Urine Blood Negative (Negative) 09/10/21 05:16 Urine Nitrite Negative (Negative) 09/10/21 05:16 Urine Bilirubin Negative (Negative) 09/10/21 05:16 Urine Urobilinogen Negative (Negative) 09/10/21 05:16 Ur Leukocyte Esterase Negative (Negative) 09/10/21 05:16 Stl C. cayetanensis PCR Not Detected (NotDetected) 09/09/21 21:37 Stool Rotavirus A PCR Not Detected (NotDetected) 09/09/21 21:37 Stl Adenov F 40/41 PCR Not Detected (NotDetected) 09/09/21 21:37 Stool Astrovirus (PCR) Not Detected (NotDetected) 09/09/21 21:37 Stool Campylobacter PCR DETECTED (NotDetected) A* 09/09/21 21:37 Stl C. diff Tox A/B PCR Not Detected (NotDetected) 09/09/21 21:37 Stool Cryptosporidium PCR Not Detected (NotDetected) 09/09/21 21:37 Stl E.coli Shiga Tox PCR Not Detected (NotDetected) 09/09/21 21:37 Stl Enterotoxigenic E PCR Not Detected (NotDetected) 09/09/21 21:37 Stool EPEC (PCR) Not Detected (NotDetected) 09/09/21 21:37 Stool EAEC (PCR) Not Detected (NotDetected) 09/09/21 21:37 Stl E. histolytica PCR Not Detected (NotDetected) 09/09/21 21:37 Stool Giardia Lamblia PCR Not Detected (NotDetected) 09/09/21 21:37 Stool Salmonella PCR Not Detected (NotDetected) 09/09/21 21:37 Stool Sapovirus (PCR) Not Detected (NotDetected) 09/09/21 21:37 Stl P. shigelloides PCR Not Detected (NotDetected) 09/09/21 21:37 Stl Shigella/EIEC PCR Not Detected (NotDetected) 09/09/21 21:37 St Y.enterocolitica PCR Not Detected (NotDetected) 09/09/21 21:37 Stool Vibrio (PCR) Not Detected (NotDetected) 09/09/21 21:37 Stl Vibrio cholerae PCR Not Detected (NotDetected) 09/09/21 21:37 Stl Norovirus GI/GII PCR Not Detected (NotDetected) 09/09/21 21:37 SARS-CoV-2, RNA, NAAT NEGATIVE (NEGATIVE) 09/09/21 19:22 Blood Type O Positive 09/09/21 15:44 Blood Type Recheck O Positive 09/09/21 16:18 Antibody Screen NEGATIVE 09/09/21 15:44 Crossmatch See Detail 09/09/21 15:44 Impressions Abdomen/Pelvis CT 09/09/21 15:40 CT abd pelvis wo con CLINICAL HISTORY: lower abdominal pain, GI bleed COMPARISON STUDY: No previous studies for comparison. CT DOSE: 939.88 mGycm TECHNIQUE: Standard CT of the Abdomen and Pelvis was performed without IV contrast. The patient did not receive oral contrast. A dose lowering technique was utilized adhering to the principles of ALARA. FINDINGS: Lung base: The lung bases are clear. Abdominal cavity: There is no evidence for abdominal mass, adenopathy or ascites. Liver: The liver is homogeneous in attenuation on these limited noncontrast images.. Spleen: The spleen is homogeneous in attenuation on these limited noncontrast images. Pancreas: The pancreas is homogeneous in attenuation on these limited noncontrast images. Gall Bladder: The gallbladder is well distended with no evidence for cholelithiasis, wall thickening or pericholecystic edema.. Adrenal glands: The adrenal glands are normal in size and attenuation on these limited noncontrast images. Kidneys: The kidneys are homogeneous in attenuation on these limited noncontrast images. There is no evidence for gross renal mass, calculus or hydronephrosis bilaterally. Bowel: There is a small sliding-type hiatal hernia. The bowel loops are normally placed within the abdomen and pelvis without evidence for dilatation or obstruction. There is extensive diverticulosis of descending and sigmoid colon. Perisigmoidal inflammatory changes are present of the sigmoid colon with "tram track sign present. Findings represent the presence of acute diverticulitis. No evidence for perforation, abscess or free air is seen. There is a normal appendix in the right lower quadrant. Bladder: There is no evidence for focal bladder wall thickening, calculus or diverticulum. : There is no evidence for pelvic mass or adenopathy. Vasculature: There is no evidence for focal aneurysmal dilatation of the abdominal aorta. Mild atherosclerotic calcification is present. Osseous structures: There is no acute osseous pathology. Mild degenerative changes are seen within the lumbar spine. IMPRESSION: 1. Acute sigmoid diverticulitis with perisigmoid inflammatory changes and tram tracking present. However, there is no evidence for perforation, abscess or free air. 2. Additional nonacute findings are delineated above. ACT 112: Negative or not required by law. Electronically signed by: Cj Hernandez M.D. 09/09/2021 4:38 PM Hospital Course (1) Diverticulitis: Acute diverticulitis on imaging, started on Zosyn with improvement. Tolerating PO and pain free at time of discharge. Stool culture also positive for campylobacter. Bloody diarrhea per history with last BM two days prior to discharge. Hb is low but stable and patient is asymptomatic. Cont azithromycin, cipro and flagyl at time of discharge with close primary care followup recommended to closely monitor his blood count. He is also to follow- up with GI in 4-6 weeks for colonoscopy in setting of hematochezia. At time of discharge he was hemodynamically stable and afebrile and was tolerating PO. He was mentating clearly and ambulating without issue. He was discharged in stable condition with close primary care follow-up recommended. (2) Acute GI bleeding: Transfused two units of packed RBCs on 09/10. H/H went from 7.10/22 to 04/24. Followup CBC in one week. Avoid Aleve. (3) Tachycardia: Patient reports having a high resting heart rate chronically. He states he is a [employer] and his HR typically is 95-100 bpm. (4) HTN (hypertension): Slightly elevated with h/o antihypertensives reported in the past, not currently taking. Close follow-up with primary care physician to repeat BP in office within the next week. (5) Tobacco use: Smoking cessation encouraged. Total Time Total Time Spent Total Time Spent (In Minutes): 60 Discharge Plan Discharge Items Patient Disposition: Home - Self-Care Reason For Visit: DIVERTICULITIS Discharge Diagnosis: Acute sigmoid diverticulitis Campylobacter infection Anemia 2/2 acute GI bleeding Condition on Discharge: Good Activity: Resume your previous activity Non-emergency contact: Primary Care Provider Call non-emergency contact if: you have any medication questions, your symptoms worsen, your pain is not controlled and your pain is worsening Follow-up/Referrals: Shahzad Grajeda DO [Outside Practitioners] - (Date & Time 09/16/2021 12:00 PM Provider Shahzad Grajeda DO Department [facility] ) Diet: Regular Addtl Attending Provider Instructions: Please take all medications as instructed on discharge list below. You are being given one additional azithromycin antibiotic pill to take for your campylobacter infection, and an additional 8 days of two antibiotics for your diverticulitis. Please follow-up with Gastroenterology as instructed for a colonoscopy in the next 4-6 weeks. If in the meantime your bleeding returns, please seek immediate medical attention. Partly as a result of your bleeding in the stool, you have anemia, where your blood count is low. This should be rechecked by your primary care physician wi thin the next week two ensure it is trending up. Please consider quitting smoking as this is terrible for your health. Your blood pressure was slightly elevated at time of discharge, 151/62. Please have your PCP repeat this reading and discuss if it is appropriate for you to go on antihypertensive medication. It was a pleasure taking care of you! Please call if you have any questions or problems. You can reach a [facility] hospitalist on duty at [facility] 24 hours a day by calling [phone]. Take care of yourself. Esmer Hassan DO [place] Hospitalist Pending Studies at Discharge: No Stand-Alone Forms: My [facility], Smoking Cessation Medications and DC Order Prescriptions: New ciprofloxacin HCl [Cipro] 500 mg tablet 500 mg PO Q12H Qty: 16 RF: 0 metronidazole 500 mg tablet 500 mg PO Q8H Qty: 24 RF: 0 azithromycin 500 mg tablet 500 mg PO DAILY Qty: 1 RF: 0 Continued acetaminophen [Tylenol] 325 mg Capsule 325 mg PO QID PRN (Reason: Pain) RF: 0 Discontinued naproxen sodium [Aleve] 220 mg Capsule 440 mg PO BID PRN (Reason: Pain) RF: 0 Discharge Orders: Discharge Order (Routine); Ordered 09/11/21 Ordered By: Esmer Bullard/Other Patient Handouts: Low-Fiber Diet, Prediabetes Admission Data Admit Date/Time: 09/09/21 17:09 Attending Provider: Esmer Hassan Admit Provider: Oswaldo Tucker Primary Care Provider: PCP,NO Other Providers: Zhao Alan ; Oswaldo Tucker Other Interventions: Discharge Summary Assessment (RN) Last Done: 09/11/21 11:14
== END 2021-09-11 13:04 | disposition home or self-care (01) | DRG 378 ==
LOC: ED 15:20 → SUATTDRO 17:09 → 2S 17:09